=== PATIENT | male | born 1950 | race Caucasian/White ===

== ENCOUNTER → 2017-11-15 | Outpatient (CLI) | payer BC ==
[2016-11-14 13:10] VITALS: BMI 35.6
[~2017-11-15] MED LIST: ASPI-1471 PO; ASPI81TA94 PO; CELE-1 PO; CHOL100058 PO; DIA5 PO; FAM20 PO; FLU45SYR17 IM; FLU45SYR25 IM ONLY; HYDR-2966 PO; HYDR-4308 PO; IBU600 PO; LEV125 PO; LEV500 PO; LEVO75TA68 PO; LIOTHYRONINE PO; LISI-362 PO; LOR5/325 PO; LOVA40TA89 PO; MULT-865 PO; NAPR220C12 PO; OXYGENHOME INH; PHENA200 PO; TADA5TAB7 PO; VITA-175 PO; VITA-197 PO
== END ==
LOC: RESP 20:44
PROVIDERS: ATTEND Internal Medicine
DX: G47.33 Obstructive sleep apnea (adult) (pediatric) (principal); G47.61 Periodic limb movement disorder

== ENCOUNTER → 2018-01-09 | Outpatient (CLI) | payer MEDICARE, BC ==
[2016-11-14 13:10] VITALS: BMI 35.6
[~2018-01-09] MED LIST changes: -HYDR-4308 PO; +HYDR-654 PO
== END ==
LOC: RESP 20:45
PROVIDERS: ATTEND Internal Medicine
DX: G47.33 Obstructive sleep apnea (adult) (pediatric) (principal); G47.36 Sleep related hypoventilation in conditions classified elsewhere

== ENCOUNTER → 2018-09-23 | Outpatient (CLI) | payer MEDICARE, BC ==
[2016-11-14 13:10] VITALS: BMI 35.6
[~2018-09-23] MED LIST changes: +FLU180SY11 IM; +LEV112 PO; +LISI20TA29 PO; +PNEU0.5D3 IM; +ROSU20TA24 PO
[2018-09-23 11:58] LABS: LDL CHOLESTEROL 89 mg/dl
== END ==
LOC: LAB 08:37
PROVIDERS: ATTEND Internal Medicine
DX: M10.9 Gout, unspecified (principal); I10 Essential (primary) hypertension; E03.9 Hypothyroidism, unspecified; E78.2 Mixed hyperlipidemia
CPT/HCPCS: 36415; 81001; 82040; 82247; 82310; 82374; 82435; 82465; 82565; 82947; 83718; 84075; 84132; 84155; 84295; 84439; 84443; 84450; 84460; 84478; 84520; 84550